=== PATIENT | female | born 1975 | race African-American/Black ===

== ENCOUNTER 2023-05-30 08:16 | Outpatient (CLI) | payer OTHER ==
[2023-05-30 11:07] LABS: Anion Gap 16 mmol/L (10-20); BUN (Urea Nitrogen) 15 mg/dL (7.0-18.7); Calc. Creatinine Clearance 0 mL/min (70-130); Calcium 9.3 mg/dL (7.8-10.44); Carbon Dioxide 29 mmol/L (22-29); Chloride 97 mmol/L (98-107); Estimated GFR 59; Glucose 120 mg/dL (70-105); Potassium 4.6 mmol/L (3.5-5.1); Sodium 137 mmol/L (136-145)
== END 2023-05-30 08:17 | disposition home or self-care (01) ==
LOC: CSHLAB 08:16
PROVIDERS: ATTEND Surgery
DX: Z01.818 Encounter for other preprocedural examination (principal); L73.2 Hidradenitis suppurativa
CPT/HCPCS: 80048; 93005; 93010

== ENCOUNTER 2023-05-31 07:06 | Day surgery (SDC) | payer OTHER ==
[2023-05-30 08:54] VITALS: BMI 53.1
[2023-05-31] MEDS ORDERED: CEFAZOLIN 2 GM VIAL ONE (08:09)
[2023-05-31] MEDS ORDERED: Bupivacaine PF 0.5% 30 ML VIAL ONE (08:09)
[2023-05-31] MEDS ORDERED: Fentanyl 250 MCG/5 ML VIAL ONE (08:26)
[2023-05-31] MEDS ORDERED: SUGAMMADEX SODIUM 200 MG/2 ML VIAL ONE ×2 (08:27→08:44)
[2023-05-31] MEDS ORDERED: PROPOFOL 20 ML ONE (08:31)
[2023-05-31] MEDS ORDERED: Dexamethasone 4 mg/ml Vial ONE (08:35)
[2023-05-31] MEDS ORDERED: SUCCINYLCHOLINE/SOD CL,ISO/PF 200 MG/10 ML SYRINGE FS ONE (08:35)
[2023-05-31] MEDS ORDERED: Rocuronium Bromide 10 MG/ML (10ML VIAL) ONE (08:35)
[2023-05-31] MEDS ORDERED: Ondansetron PF 4 MG/2 ML Vial ONE (08:35)
[2023-05-31] MEDS ORDERED: Glycopyrrolate 0.2 MG/ML 5 ML SYRINGE ONE (08:55)
[2023-05-31] MEDS ORDERED: PHENYLEPHRINE-NS 100 MCG/ML 10 ML SYRINGE ONE (09:30)
[2023-05-31] MEDS ORDERED: HYDROcodone/Acetaminophen 5/325 mg Tablet PO PRN ×2 (09:35)
[2023-05-31] MEDS ORDERED: EPINEPHrine 1 MG/ML AMP ONE (09:36)
[2023-05-31] MEDS ORDERED: HYDROcodone/Acetaminophen 5/325 mg Tablet ONE (10:25)
== END 2023-05-31 11:00 | disposition home or self-care (01) ==
LOC: CSHSDC 07:06
PROVIDERS: ATTEND Surgery
PROC: 0JBB0ZZ Excision of Perineum Subcutaneous Tissue and Fascia, Open Approach (ICD-10-PCS; principal; 2023-05-31)
DX: L73.2 Hidradenitis suppurativa (principal); I10 Essential (primary) hypertension; E11.9 Type 2 diabetes mellitus without complications; E66.01 Morbid (severe) obesity due to excess calories; Z68.43 Body mass index [BMI] 50.0-59.9, adult; Z86.73 Personal history of transient ischemic attack (TIA), and cerebral infarction without residual deficits; Z79.899 Other long term (current) drug therapy; Z79.84 Long term (current) use of oral hypoglycemic drugs
CPT/HCPCS: J0171; J0665; J1100; J2405; J2704; J3010